=== PATIENT | female | born 1970 | race Caucasian/White ===

== ENCOUNTER 2019-04-10 10:50 | Emergency (ER) | payer MEDICAID ==
[~2019-04-10] VITALS: Ht 157.5 cm; Wt 86.0 kg
[2019-04-10 11:32] LABS: BASOPHILS % (AUTO) 0.2 % (0-1); EOSINOPHILS # (AUTO) 0.4 X10'3 (0-0.9); EOSINOPHILS % (AUTO) 6.7 % (0-6); HEMATOCRIT 41.1 % (35.0-45.0); HEMOGLOBIN 13.9 g/dl (12.0-16.0); LYMPHOCYTES # (AUTO) 1.8 X10'3 (1.1-4.8); LYMPHOCYTES % (AUTO) 28.9 % (21-51); MEAN CORPUSCULAR HGB CONC 33.9 g/dL (33.0-36.5); MEAN CORPUSCULAR VOLUME 91.3 FL (78-98); MONOCYTES # (AUTO) 0.5 X10'3 (0-0.9); MONOCYTES % (AUTO) 7.6 % (2-12); NEUTROPHILS # (AUTO) 3.4 X10'3 (1.8-7.7); NEUTROPHILS % (AUTO) 56.6 % (42-75); PLATELET COUNT 267 X10'3 (140-440); WHITE BLOOD COUNT 6.1 X10'3 (4.5-11.0)
[2019-04-10 11:46] LABS: ALANINE AMINOTRANSFERASE 39 U/L (12-78); ALBUMIN 3.7 G/DL (3.4-5.0); ALBUMIN/GLOBULIN RATIO 1.1 (1.1-1.5); ALKALINE PHOSPHATASE 92 IU/L (46-116); ANION GAP 9 (8-16); ASPARTATE AMINO TRANSFERASE 20 U/L (10-37); BILIRUBIN,TOTAL 0.3 MG/DL (0.1-1.0); BLOOD UREA NITROGEN 8 MG/DL (7-18); BUN/CREATININE RATIO 9.4 (6.6-38.0); CALCIUM 8.9 MG/DL (8.5-10.1); CHLORIDE 107 MMOL/L (99-107); CREATININE 0.85 MG/DL (0.40-0.90); GLUCOSE 136 MG/DL (70-104); POTASSIUM 4.4 MMOL/L (3.5-5.1); SODIUM 143 MMOL/L (135-145); TOTAL CARBON DIOXIDE 26.7 MMOL/L (24-32); TOTAL PROTEIN 7.1 G/DL (6.4-8.2); eGFR 71 ML/MIN
[2019-04-10] MEDS ORDERED: ipratropium/albuterol 3ml nebule NEB ONE (12:20)
[2019-04-10] MEDS ORDERED: predniSONE 20 mg tablet PO ONE (12:20)
--- NOTE | 2019-04-10 12:42 | NUR ---
RT at bedside.
[2019-04-10] MEDS ORDERED: PRED20TA PO (12:48)
[2019-04-10 13:03] VITALS: BP 126/82
== END 2019-04-10 13:04 | disposition home or self-care (01) ==
LOC: ER 10:51
DX: J45.909 Unspecified asthma, uncomplicated (principal); F17.200 Nicotine dependence, unspecified, uncomplicated; Z79.899 Other long term (current) drug therapy; Z88.5 Allergy status to narcotic agent
CPT/HCPCS: 36415; 71045; 80053; 85025; 94640; 99284; J7512

== ENCOUNTER 2019-06-05 10:22 | Emergency (ER) | payer OTHER ==
[~2019-06-05] VITALS: Ht 160 cm; Wt 90.0 kg
[2019-06-05 10:26] VITALS: BP 135/56
[2019-06-05] MEDS ORDERED: PENI500T2 PO (12:01)
== END 2019-06-05 12:15 | disposition home or self-care (01) ==
LOC: ER 10:22
DX: K08.89 Other specified disorders of teeth and supporting structures (principal); K13.79 Other lesions of oral mucosa; J44.9 Chronic obstructive pulmonary disease, unspecified; Z88.5 Allergy status to narcotic agent; Z79.899 Other long term (current) drug therapy
CPT/HCPCS: 99283

== ENCOUNTER 2019-08-10 07:24 | Emergency (ER) | payer OTHER ==
[~2019-08-10] VITALS: Ht 157.5 cm; Wt 75.0 kg
[2019-08-10 07:33] VITALS: BP 150/108
[2019-08-10] MEDS ORDERED: triamcinolone acetonide 40mg/ml inj IM ONE (07:35)
[2019-08-10] MEDS ORDERED: diphenhydrAMINE 25mg capsule PO ONE (07:35)
[2019-08-10] MEDS ORDERED: PRED20TA PO (07:37)
== END 2019-08-10 07:55 | disposition home or self-care (01) ==
LOC: ER 07:25
DX: L23.7 Allergic contact dermatitis due to plants, except food (principal); J44.9 Chronic obstructive pulmonary disease, unspecified; F17.200 Nicotine dependence, unspecified, uncomplicated; Z88.5 Allergy status to narcotic agent; Z79.899 Other long term (current) drug therapy
CPT/HCPCS: 96372; 99283; J3301; Q0163

== ENCOUNTER 2019-10-17 10:48 | Emergency (ER) | payer OTHER ==
[~2019-10-17] VITALS: Ht 157.5 cm; Wt 77.3 kg
[2019-10-17 10:48] VITALS: BP 150/94
[2019-10-17] MEDS ORDERED: GABA600T13 PO (11:14)
[2019-10-17] MEDS ORDERED: TRAZ150T78 PO (11:15)
== END 2019-10-17 11:49 | disposition home or self-care (01) ==
LOC: ER 10:48
DX: G62.9 Polyneuropathy, unspecified (principal); Z76.0 Encounter for issue of repeat prescription; J44.9 Chronic obstructive pulmonary disease, unspecified; F17.200 Nicotine dependence, unspecified, uncomplicated; E07.9 Disorder of thyroid, unspecified; Z88.5 Allergy status to narcotic agent
CPT/HCPCS: 99281; 99283

== ENCOUNTER 2020-02-01 15:35 | Emergency (ER) | payer OTHER ==
[~2020-02-01] VITALS: Ht 157.5 cm; Wt 72.7 kg
[~2020-02-01 15:35] MED LIST: GABA600T13 PO; TRAZ150T78 PO
[2020-02-01] MEDS ORDERED: vancomycin/NS 1 GM ADD-VANTAGE 250 ML IV ONE (16:05)
[2020-02-01] MEDS ORDERED: normal saline 1000ML IV soln IV ONE (16:05)
[2020-02-01] MEDS ORDERED: piperacillin/tazo 3.375gm/50ml 50 ML IV ONE (16:05)
--- NOTE | 2020-02-01 16:40 | NUR ---
Pt is crying and asking for her pain medication. Pt informed there is not an order for pain medication at this time but will speak with a provider regarding her pain level.
[2020-02-01 16:46] LABS: BASOPHILS # (AUTO) 0.1 X10'3 (0-0.2); BASOPHILS % (AUTO) 0.6 % (0-1); EOSINOPHILS # (AUTO) 0.4 X10'3 (0-0.9); EOSINOPHILS % (AUTO) 3.1 % (0-6); HEMATOCRIT 38.6 % (35.0-45.0); HEMOGLOBIN 12.9 g/dl (12.0-16.0); LYMPHOCYTES # (AUTO) 1.3 X10'3 (1.1-4.8); MEAN CORPUSCULAR HEMOGLOBIN 31.5 PG (27.0-31.0); MEAN CORPUSCULAR HGB CONC 33.3 g/dL (33.0-36.5); MEAN CORPUSCULAR VOLUME 94.7 FL (78-98); MEAN PLATELET VOLUME 7.9 FL (7.4-10.4); MONOCYTES # (AUTO) 1.3 X10'3 (0-0.9); MONOCYTES % (AUTO) 9.5 % (2-12); NEUTROPHILS % (AUTO) 77.8 % (42-75); PLATELET COUNT 252 X10'3 (140-440); RED BLOOD COUNT 4.08 X10'6 (4.20-5.60); RED CELL DISTRIBUTION WIDTH 13.5 % (11.5-14.5); WHITE BLOOD COUNT 14.1 X10'3 (4.5-11.0)
[2020-02-01 16:55] LABS: ALANINE AMINOTRANSFERASE 35 U/L (12-78); ALBUMIN 3.7 G/DL (3.4-5.0); ALBUMIN/GLOBULIN RATIO 1.2 (1.1-1.5); ALKALINE PHOSPHATASE 99 IU/L (46-116); ANION GAP 10 (8-16); ASPARTATE AMINO TRANSFERASE 23 U/L (10-37); BILIRUBIN,TOTAL 0.5 MG/DL (0.1-1.0); BLOOD UREA NITROGEN 7 MG/DL (7-18); BUN/CREATININE RATIO 8.6 (6.6-38.0); CALCIUM 8.6 MG/DL (8.5-10.1); CHLORIDE 103 MMOL/L (99-107); CREATININE 0.81 MG/DL (0.40-0.90); GLUCOSE 116 MG/DL (70-104); POTASSIUM 3.7 MMOL/L (3.5-5.1); SODIUM 136 MMOL/L (135-145); TOTAL CARBON DIOXIDE 22.9 MMOL/L (24-32); TOTAL PROTEIN 6.9 G/DL (6.4-8.2); eGFR 75 ML/MIN
[2020-02-01] MEDS ORDERED: morphine 4 MG/ML inj SYRINge IV ONE ×2 (16:55→19:15)
[2020-02-01] MEDS ORDERED: ondansetron/PF 4mg/2ml inj IV ONE (16:55)
[2020-02-01] MEDS ORDERED: iohexol 300mg/ml 100ml inj. ONE (17:02)
[2020-02-01] MEDS ORDERED: SERT100T10 PO (18:30)
[2020-02-01] MEDS ORDERED: ATOR20TA66 PO (18:30)
[2020-02-01] MEDS ORDERED: NAPR-996 PO (18:30)
[2020-02-01] MEDS ORDERED: SULF1TAB49 PO (19:21)
[2020-02-01] MEDS ORDERED: AMOX-117 PO (19:21)
[2020-02-01 20:22] VITALS: BP 140/82
== END 2020-02-01 20:12 | disposition home or self-care (01) ==
LOC: ER 15:35
DX: L03.221 Cellulitis of neck (principal); J44.9 Chronic obstructive pulmonary disease, unspecified; J02.9 Acute pharyngitis, unspecified; R50.9 Fever, unspecified; Z88.5 Allergy status to narcotic agent; Z79.899 Other long term (current) drug therapy
CPT/HCPCS: 36415; 70491; 80053; 83605; 84145; 85025; 87040; 96365; 96366; 96367; 96375; 96376; 99285; J2270; J2405; J2543; J3370; J7030; Q9967; 96361

== ENCOUNTER 2020-02-05 10:31 | Emergency (ER) | payer OTHER ==
[~2020-02-05] VITALS: Ht 157.5 cm; Wt 72.7 kg
[~2020-02-05 10:31] MED LIST changes: +AMOX-117 PO; +ATOR20TA66 PO; +NAPR-996 PO; +SERT100T10 PO; +SULF1TAB49 PO
[2020-02-05 10:39] VITALS: BP 113/81
== END 2020-02-05 11:00 | disposition home or self-care (01) ==
LOC: ER 10:31
DX: L02.11 Cutaneous abscess of neck (principal); J44.9 Chronic obstructive pulmonary disease, unspecified; Z86.19 Personal history of other infectious and parasitic diseases; Z88.5 Allergy status to narcotic agent; Z79.2 Long term (current) use of antibiotics; Z79.899 Other long term (current) drug therapy
CPT/HCPCS: 99281

== ENCOUNTER 2020-02-13 11:19 | Emergency (ER) | payer OTHER ==
[~2020-02-13 11:19] MED LIST changes: -AMOX-117 PO; -SULF1TAB49 PO
== END 2020-02-13 12:24 | disposition left against medical advice (07) ==
LOC: ER 11:19
DX: L02.91 Cutaneous abscess, unspecified (principal); Z53.21 Procedure and treatment not carried out due to patient leaving prior to being seen by health care provider

== ENCOUNTER 2022-09-30 18:08 | Emergency (ER) | payer MEDICAID, OTHER ==
[~2022-09-30 18:08] MED LIST changes: +SERT-434 PO; -SERT100T10 PO
== END 2022-09-30 20:07 | disposition left against medical advice (07) ==
LOC: ER 18:08
DX: R09.89 Other specified symptoms and signs involving the circulatory and respiratory systems (principal); Z53.21 Procedure and treatment not carried out due to patient leaving prior to being seen by health care provider